=== PATIENT | female | born 1985 | race Caucasian/White ===

== ENCOUNTER → 2018-02-18 08:49 | Outpatient (CLI) | payer OTHER, SELFPAY ==
[2018-02-18 09:41] LABS: Kit/Specimen SENT
== END ==
PROVIDERS: PCP Family Medicine; Visit Provider Advanced Practice Midwife
DX: Z34.81 Encounter for supervision of other normal pregnancy, first trimester (principal); Z36.89 Encounter for other specified antenatal screening
CPT/HCPCS: 36415

== ENCOUNTER → 2018-03-01 00:27 | Outpatient (CLI) | payer OTHER, SELFPAY ==
--- NOTE | 2018-03-01 09:50 | DI.REPORT_ITS ---
SYMPTOM/DIAGNOSIS: TWIN GESTATIN WITH 1 DEMISE, Z34.91, 030.091 OB ULTRASOUND: Comparison is made with 08 February 2018. There is a single gestational sac within the endometrial cavity. A small peripheral echogenic focus is seen which could represent remnants of the previously noted twin gestation. The biometric measurements of the living fetus measures 12 weeks 6 days. cardiac activity is demonstrated at 152 beats/minute. IMPRESSION: Viable single intrauterine gestation of 12 weeks 6 days. A small echogenic focus is seen which could represent remnants of a previously noted nonviable fetus. Many abnormalities cannot be diagnosed. A normal exam does not exclude a congenital anomaly. Radiology No. [id number] LMP: Exam Date:03/01/18 [facility] wks days on EDC ([facility]) 09/10/18 Confirmed: HISTORY: TWIN GESTATIN WITH 1 DEMISE ---- PREDICTED GESTATIONAL AGE NUMBER 12 +3 weeks with a range of 11 +3 week to 13 +3 weeks. 1 Determined by_XX__1STUS___LMP___HISTORY Info. pertaining to fetus # PLACENTA PRESENTATION Grade 0 Cephalic___ Anterior___Posterior___ Breech____ Right Left Transverse(head right___ Fundal___Low-lying___Previa___ Transverse(head left___ Varying___X___ BIOMETRY AMNIOTIC FLUID BPD: mm weeks Normal HC: mm weeks AC: mm weeks FL: mm weeks AMNIOTIC FLUID INDEX >26 WK CRL: 66 mm 12 +6 weeks Cisterna Magna: mm CI: RUQ: LUQ Cerebellum: cm EFW: grams 70% Percentile RLQ: LLQ Total: cms Composite AGE= 12 +6 wks EDC by US__09/07/18 BIOPHYSICAL PROFILE ANATOMY IDENTIFIED SCORE 0/2 Heart: 4-Chamber___Rate:BPM__152 BPM___ LVOT: RVOT: Amniotic Fluid(>2cms)____ Stomach: Kidneys: Respirations (>30 secs) Bladder: Post. Fossa: Body Flex/Extension 3 vessel cord: Ventricles: cord insertion: Lips:____ Extremity Flex/Extension spinal morphology: Nose: Total Score= Palate: NS=not seen
== END ==
PROVIDERS: PCP Family Medicine; Visit Provider Obstetrics & Gynecology
DX: O30.091 Twin pregnancy, unable to determine number of placenta and number of amniotic sacs, first trimester (principal); Z34.81 Encounter for supervision of other normal pregnancy, first trimester
CPT/HCPCS: 76801

== ENCOUNTER 2018-04-13 00:34 | Outpatient (CLI) | payer OTHER, SELFPAY ==
--- NOTE | 2018-04-13 14:49 | DI.US_ITS ---
SYMPTOM/DIAGNOSIS: CARE [address] [place] [address] Z34.82 Many abnormalities cannot be diagnosed. A normal exam does not exclude a congenital anomaly. Radiology No. [id number] LMP: Exam Date: 04/13/18 [facility] 12 wks 6 days on EDC ([facility]) 09/10/18 Confirmed: HISTORY: EDC, SURVEY ---- PREDICTED GESTATIONAL AGE NUMBER 19 weeks with a range of 18 week to 20 weeks. 1 Determined by_XX__1STUS___LMP___HISTORY Info. pertaining to fetus # PLACENTA PRESENTATION Grade 0-1 Cephalic___ Anterior_X__Posterior__X_ Breech____ Right Left__X Transverse(head right___ Fundal_X__Low-lying___Previa___ Transverse(head left___ Varying___X___ BIOMETRY AMNIOTIC FLUID BPD: 44 mm 19 +1 weeks Normal HC: 167 mm 19 +2 weeks AC: 139 mm 19 +2 weeks FL: 29 mm 18 +6 weeks AMNIOTIC FLUID INDEX >26 WK CRL: mm weeks Cisterna Magna: 5 mm CI: 0,79 RUQ: LUQ Cerebellum: 1.9 cm EFW: 276 grams Percentile RLQ: LLQ Total: cms Composite AGE= 10 +1 wks EDC by US__09/06/18 BIOPHYSICAL PROFILE ANATOMY IDENTIFIED SCORE 0/2 Heart: 4-Chamber_X__Rate:BPM__165___ LVOT:____X RVOT:___X Amniotic Fluid(>2cms)____ Stomach:__X Kidneys:__X Respirations (>30 secs) Bladder:___X Post. Fossa:___X Body Flex/Extension 3 vessel cord:__X Ventricles:___X cord insertion:__X___ Lips:__X__ Extremity Flex/Extension spinal morphology:__X Nose:X Total Score= Palate:___X____ NS=not seen
== END 2018-04-13 00:54 ==
PROVIDERS: PCP Family Medicine; Visit Provider Advanced Practice Midwife
DX: Z34.82 Encounter for supervision of other normal pregnancy, second trimester (principal)
CPT/HCPCS: 76805

== ENCOUNTER 2018-04-19 15:13 | Outpatient (CLI) | payer OTHER, SELFPAY ==
[2018-04-21 12:57] LABS: AFP 55.5 ng/mL; Calculated age at EDD 34 years; Cigarette smoking status non-smoker; GA used in risk estimate Scan estimate; IVF Pregnancy No; Initial or repeat testing Initial testing; Insulin dependent diabetes No; Maternal Weight 185 lbs; Number of Fetuses 1; Prev Pregnancy w/NTD No; RECOMMENDED FOLLOW UP None.; Results Summary Normal risk
== END 2018-04-19 15:33 ==
PROVIDERS: PCP Family Medicine; Visit Provider Advanced Practice Midwife
DX: Z34.92 Encounter for supervision of normal pregnancy, unspecified, second trimester (principal); Z36.89 Encounter for other specified antenatal screening
CPT/HCPCS: 36415; 82105

== ENCOUNTER 2018-06-20 08:11 | Outpatient (CLI) | payer OTHER, SELFPAY ==
[2018-06-20 08:31] LABS: HCT 34.5 % (36.0-46.0); HGB 11.5 g/dL (12.0-15.5); Mean Corp. HGB Concentration 33.3 g/dL (32.0-36.0); Mean Corpuscular Hemoglobin 30.9 pg (27.0-33.0); Mean Corpuscular Volume 92.7 fL (80-95); Mean Platelet Volume 10.2 fL (8.0-11.0); Platelet Count 171 x1000/uL (130-400); RBC 3.72 m/cumm (4.00-5.20); RBC Distribution Width 13.5 % (11.7-14.6); White Blood Cell Count 5.95 k/cumm (4.4-10.8)
[2018-06-20 08:39] LABS: Glucose,1 Hr (Glucola) 77 mg/dL (80-140)
== END 2018-06-20 08:31 ==
PROVIDERS: PCP Family Medicine; Visit Provider Advanced Practice Midwife
DX: Z34.93 Encounter for supervision of normal pregnancy, unspecified, third trimester (principal); Z36.2 Encounter for other antenatal screening follow-up
CPT/HCPCS: 36415; 82950; 85027; 86850; 90384

== ENCOUNTER 2018-06-22 00:56 | Outpatient (CLI) | payer OTHER, SELFPAY ==
--- NOTE | 2018-06-22 15:35 | DI.US_ITS ---
SYMPTOM/DIAGNOSIS: INNER ASPECT RT CALF, R/O DVT Z34.90 RIGHT LOWER EXTREMITY ULTRASOUND: There is an area of the bruising and pain in the calf region. There are dilated tortuous superficial veins without thrombus. The deep venous system also appears free of thrombus. No Cabral's cyst or hematoma seen. IMPRESSION: Tortuous superficial veins in the calf. No evidence of superficial or deep venous thrombosis.
--- NOTE | 2018-06-22 16:57 | DI.VRAD_ITS ---
EXAM: US Right Duplex Lower Extremity Veins, Limited EXAM DATE/TIME: 06/22/2018 4:35 PM CLINICAL HISTORY: 32 years old, female; Signs and symptoms; Varicose veins of lower extremities; With pain; Patient HX: Inner aspect of RT calf pain and swelling in area of varicose vein. Rule out dvt. TECHNIQUE: Real-time Duplex ultrasound of the Right Lower Extremity with 2-D mejia scale, color Doppler flow and spectral waveform analysis. Limited exam was focused on the right lower extremity veins. COMPARISON: No relevant prior studies available. FINDINGS: Right deep veins: Unremarkable. The common femoral, femoral and popliteal veins are patent without thrombus. Normal compressibility, augmentation response and Doppler waveforms. Right superficial veins: Unremarkable. Saphenofemoral junction is patent without thrombus. Soft tissues: Unremarkable. IMPRESSION: No acute findings. No evidence of deep vein thrombosis. Dictated and Authenticated by: Emil Hoover MD. Ordering:JUD LO MD
== END 2018-06-22 01:16 ==
PROVIDERS: PCP Family Medicine; Visit Provider Advanced Practice Midwife
DX: M79.604 Pain in right leg (principal); I83.811 Varicose veins of right lower extremity with pain
CPT/HCPCS: 93971

== ENCOUNTER 2018-08-15 10:23 | Outpatient (CLI) | payer OTHER, SELFPAY | END 2018-08-15 10:43 | PROVIDERS: PCP Family Medicine; Visit Provider Advanced Practice Midwife | DX: O36.8130 Decreased fetal movements, third trimester, not applicable or unspecified (principal); Z3A.36 36 weeks gestation of pregnancy | CPT/HCPCS: 59025 ==

== ENCOUNTER 2018-08-15 11:43 | Outpatient (CLI) | payer OTHER, SELFPAY ==
--- NOTE | 2018-08-15 12:12 | DI.US_ITS ---
SYMPTOM/DIAGNOSIS: EVALUATE EFW AND YANNICK PRIOR TO ATTEMPT AT ECV LIMITED OB ULTRASOUND: The amniotic fluid index is 16.5, in the normal range. The biometric measurements correspond to 36 weeks 5 days which is within the expected range. The placenta is anterior. Estimated weight is 3083 grams, consistent with 70% percentile. No abnormalities are identified. IMPRESSION: weight and YANNICK are within normal limits. Many abnormalities cannot be diagnosed. A normal exam does not exclude a congenital anomaly. Radiology No. [id number] LMP: Exam Date:08/15/2018 [facility] wks days on EDC ([facility]) 09/10/18 Confirmed: HISTORY: EVALUATE EFW AND YANNICK PREDICTED GESTATIONAL AGE NUMBER 36 +2 weeks with a range of 35 +2 week to 37 +2 weeks. 1 Determined by_XX__1STUS___LMP___HISTORY Info. pertaining to fetus # PLACENTA PRESENTATION Grade II Cephalic___ Anterior_XX__Posterior___ Breech__XX__ Right Left__XX Transverse(head right___ Fundal___Low-lying___Previa___ Transverse(head left___ Varying BIOMETRY AMNIOTIC FLUID BPD: 90 mm 36 +3 weeks Normal HC: 325 mm 36 +5 weeks AC: 336 mm 37 +4 weeks FL: 70 mm 36 +1 weeks AMNIOTIC FLUID INDEX >26 WK CRL: mm weeks Cisterna Magna: mm CI: 81 RUQ:_7.5 LUQ___2.3 Cerebellum: cm EFW: 3083 grams 72% Percentile RLQ:__6.6____LLQ__0 Total:__16.5__cms Composite AGE= 36 +5 wks EDC by US___/ BIOPHYSICAL PROFILE ANATOMY IDENTIFIED SCORE 0/2 Heart: 4-Chamber__XX_Rate:BPM__135 BPM___ LVOT: RVOT: Amniotic Fluid(>2cms)____ Stomach:____XX___ Kidneys: Respirations (>30 secs) Bladder:___XX Post. Fossa: Body Flex/Extension 3 vessel cord: Ventricles: cord insertion: Lips:__XX__ Extremity Flex/Extension spinal morphology: Nose: XX Total Score= Palate: NS=not seen
== END 2018-08-15 12:03 ==
PROVIDERS: PCP Family Medicine; Visit Provider Obstetrics & Gynecology
DX: O32.1XX0 Maternal care for breech presentation, not applicable or unspecified (principal); Z34.93 Encounter for supervision of normal pregnancy, unspecified, third trimester
CPT/HCPCS: 76816

== ENCOUNTER 2018-08-15 14:03 | Outpatient (REF) | payer OTHER, SELFPAY | END 2018-08-15 14:23 | LOC: LBN 14:03 | PROVIDERS: PCP Family Medicine; Visit Provider Advanced Practice Midwife | DX: Z34.93 Encounter for supervision of normal pregnancy, unspecified, third trimester (principal); Z36.85 Encounter for antenatal screening for Streptococcus B | CPT/HCPCS: 87081 ==

== ENCOUNTER 2018-08-16 07:16 | Observation (INO) | payer OTHER, SELFPAY ==
[2018-08-16 08:13] LABS: HCT 34.3 % (36.0-46.0); HGB 11.4 g/dL (12.0-15.5); Mean Corp. HGB Concentration 33.2 g/dL (32.0-36.0); Mean Corpuscular Hemoglobin 30.1 pg (27.0-33.0); Mean Corpuscular Volume 90.5 fL (80-95); Mean Platelet Volume 11.1 fL (8.0-11.0); Platelet Count 158 x1000/uL (130-400); RBC 3.79 m/cumm (4.00-5.20); RBC Distribution Width 14.3 % (11.7-14.6); White Blood Cell Count 6.49 k/cumm (4.4-10.8)
[2018-08-16] MEDS: Lactated Ringers 1,000 ML 125 ML IV (08:38)
[2018-08-16] MEDS: Terbutaline 1 MG/ML VIAL 0.25 MG SC (08:38)
--- NOTE | 2018-08-17 15:04 | W.PM.OP ---
Date of service: 08/16/18 Operative Note DATE OF PROCEDURE: 08/16/18 PRE-OP DIAGNOSIS: 36 weeks. Breech presentaiton POST-OP DIAGNOSIS: same PROCEDURE: External cephalic version SURGEON: Shahid Chou ANESTHESIA: other (Nitrous) ESTIMATED BLOOD LOSS: 0 PATHOLOGY: none sent COMPLICATIONS: None Procedure Description: The patient was counseled on risks related to ECV including distress, placenta abruption, rupture of membranes and labor. All questions were answered and consent was obtained preprocedure. A reactive non-stress test was obtained prior the procedure. A bedside ultrasound confirmed petrona breech presentation. The patient was medicated with 0.25 mg of SQ terbutaline. Attempts at rotation were made. The fetus was in back up presentation. After several attempts the fetus was unable to be turned and the procedure was abandoned. Continuous monitoring was peformed for [facility] 2 hours post procedure which showed a reactive tracing.
--- NOTE | 2018-08-17 15:07 | ROE_ITS ---
Date of service: 08/16/18 Operative Note DATE OF PROCEDURE: 08/16/18 PRE-OP DIAGNOSIS: 36 weeks. Breech presentaiton POST-OP DIAGNOSIS: same PROCEDURE: External cephalic version SURGEON: Shahid Chou ANESTHESIA: other (Nitrous) ESTIMATED BLOOD LOSS: 0 PATHOLOGY: none sent COMPLICATIONS: None Procedure Description: The patient was counseled on risks related to ECV including distress, placenta abruption, rupture of membranes and labor. All questions were answered and consent was obtained preprocedure. A reactive non-stress test was obtained prior the procedure. A bedside ultrasound confirmed petrona breech presentation. The patient was medicated with 0.25 mg of SQ terbutaline. Attempts at rotation were made. The fetus was in back up presentation. After several attempts the fetus was unable to be turned and the procedure was abandoned. Continuous monitoring was peformed for [facility] 2 hours post procedure which showed a reactive tracing.
== END 2018-08-16 11:20 | disposition home or self-care (01) ==
PROVIDERS: Admitting Provider Obstetrics & Gynecology; PCP Family Medicine; Visit Provider Obstetrics & Gynecology
DX: O32.1XX0 Maternal care for breech presentation, not applicable or unspecified (principal); Z3A.36 36 weeks gestation of pregnancy; Z29.13 Encounter for prophylactic Rho(D) immune globulin; Y66 Nonadministration of surgical and medical care
CPT/HCPCS: 59412; 36415; 76815; 85027; 86850; 86900; 86901; 90384; 96372; 59025; 86870; G0378; J2790

== ENCOUNTER 2018-08-20 07:16 | Outpatient (CLI) | payer OTHER, SELFPAY ==
[2018-08-20 09:04] LABS: Abs Immature Grans 0.03 k/cumm (0.0-0.09); Absolute Basophil Count 0.01 k/cumm (0.0-0.2); Absolute Eosinophil Count 0.12 k/cumm (0.0-0.7); Absolute Lymphocyte Count 1.24 k/cumm (1.2-3.4); Absolute Monocyte Count 0.54 k/cumm (0.11-0.7); Absolute Neutrophil Count 5.26 k/cumm (1.2-6.7); Basophils % 0.1; Eosinophils % 1.7; HCT 35.5 % (36.0-46.0); HGB 11.9 g/dL (12.0-15.5); Immature Grans % 0.4; Lymphocytes % 17.2; Mean Corp. HGB Concentration 33.5 g/dL (32.0-36.0); Mean Corpuscular Hemoglobin 30.7 pg (27.0-33.0); Mean Corpuscular Volume 91.5 fL (80-95); Mean Platelet Volume 11.5 fL (8.0-11.0); Monocytes % 7.5; Neutrophils % 73.1; Platelet Count 169 x1000/uL (130-400); RBC 3.88 m/cumm (4.00-5.20); RBC Distribution Width 14.5 % (11.7-14.6)
[2018-08-20 09:07] LABS: Anion Gap 7.9 mmol/L (3-11); BUN 11 mg/dL (7-18); CO2 25.1 mmol/L (21.0-32.0); CREATININE 0.61 mg/dL (0.55-1.02); Calcium 8.7 mg/dL (8.5-10.1); Chloride 103 mmol/L (98-107); Glucose 79 mg/dL (70-100); Potassium 3.9 mmol/L (3.5-5.1); Sodium 136 mmol/L (136-145)
== END 2018-08-20 08:59 | disposition home or self-care (01) ==
PROVIDERS: PCP Family Medicine; Visit Provider Advanced Practice Midwife
DX: O26.893 Other specified pregnancy related conditions, third trimester (principal); R42 Dizziness and giddiness; Z3A.37 37 weeks gestation of pregnancy
CPT/HCPCS: 36415; 80048; 59025; 81003; 85025

== ENCOUNTER 2018-09-01 08:20 | Emergency (ER) | payer OTHER, SELFPAY ==
[2018-09-01 08:26] VITALS: BP 126/87; PULSE 89; RESP 16; TEMP 36.8; O2SAT 97
[2018-09-01] MEDS: Meclizine 25 MG TAB PO (08:35)
[2018-09-01 08:39] VITALS: RESP 16
--- NOTE | 2018-09-01 08:39 | ED.GENADUL_ITS ---
Discharge Plan Disposition Patient Disposition: HOME Condition: Good Discharge Details Chief Complaint: Dizzy/Sync Clinical Impression: Dizziness Primary Care Provider: Josue Us ED Provider: Donald Elam Home Meds and New Rx's Prescriptions: New meclizine 25 mg tablet 25 mg PO BID PRN (Reason: dizziness) Qty: 20 RF: 0 No Action razia.stocking,thigh,reg,med misc .ROUTE .MEDSUPPLY Qty: 2 RF: 0 pantoprazole [Protonix] 20 mg tablet,delayed release (DR/EC) 20 mg PO DAILY MDD 20 MG Qty: 90 RF: 0 breast pump device .ROUTE .MEDSUPPLY Qty: 1 RF: 0 Daily Multiple 1 EACH tablet 1 ea PO DAILY RF: 0 oseltamivir 75 mg capsule 75 mg PO DAILY Qty: 10 RF: 0 ferrous sulfate [Iron (ferrous sulfate)] 325 mg (65 mg iron) Tablet 325 mg PO DAILY RF: 0 Discharge Instructions Instructions: Dizziness (ED) Additional Instructions: Please take medication as directed. Please drink 10-12 cups of water fluid per day. If you notice any worsening of your symptoms, or any new symptoms such as severe headache, worsening dizziness, vomiting, diarrhea, fever, chills, shortness of breath, chest pain, numbness, weakness, or fainting , please return immediately to the emergency department for reevaluation. Please follow up with your primary care provider as soon as possible for reassessment and reevaluation. As always, it was a pleasure participating in your medical care today. Referrals: Josue Us [Primary Care Provider] - Medical Decision Making This is a 32-year-old female who is currently 39 weeks scheduled to have a in 2 days who presents today for evaluation of dizziness for the last 2 days, made worse with movement, and with associated mild tinnitus. Physical exam demonstrates horizontal nystagmus, but no red flags of vertical nystagmus, rotatory nystagmus, positive test of skew, ataxia, and in no red flags of headache, neurologic deficit, neurologic abnormality, or other concerning event. Signs and symptoms are clinically consistent with peripheral vertigo, and inconsistent with venous sinus thrombosis, cerebellar stroke, eclampsia, or preeclampsia, or other significant abnormality. No evidence of otitis media or significant effusion. With signs and symptoms consistent with peripheral vertigo I feel that the patient would benefit from meclizine, oral fluids, and close follow-up. We discussed red flags which to return the patient understands. I have extensively reviewed the treatment plan and discharge instructions with the patient. I have addressed all patient concerns at this time. The patient was made aware of what symptoms to monitor for that would warrant a return to the emergency department. Discussed the plan with the patient, they demonstrate verbal understanding and agreement with our assessment and plan at this time. HPI General Date/Time Provider Initiated Documentation: 09/01/18 08:21 . HPI Narrative: This is a 32-year-old female who is currently 39 weeks scheduled to have a in 2 days, who presents today for 2 days of dizziness. She has no associated headache, neck stiffness, fever, chills, nausea, vomiting or diarrhea. The dizziness is worse with movement, and is associated with mild tinnitus. She denies any other associated symptoms. She has not had symptoms like this before. She denies any recent trauma. Of note the patient is on Tamiflu currently prophylactically as her son came down with the flu. She denies any new medications otherwise. She is taking a vitamin. She has no other complaints or modifying factors at this time. Related Data Home Medications Medication Instructions Recorded Confirmed Daily Multiple 1 ea PO DAILY 09/26/14 09/01/18 compression stocking,thigh #2 each 07/04/18 08/23/18 high,regular length,medium circumference breast pump #1 each 07/20/18 08/23/18 pantoprazole [Protonix] 20 mg PO DAILY #90 tab-cap MDD 20 07/20/18 09/01/18 MG ferrous sulfate [Iron (ferrous 325 mg PO DAILY 08/16/18 09/01/18 sulfate)] oseltamivir 75 mg capsule 75 mg PO DAILY #10 cap 08/26/18 09/01/18 meclizine 25 mg PO BID PRN #20 tab 09/01/18 Previous Rx's Medication Instructions Recorded compression stocking,thigh #2 each 07/04/18 high,regular length,medium circumference breast pump #1 each 07/20/18 pantoprazole [Protonix] 20 mg PO DAILY #90 tab-cap MDD 20 07/20/18 MG oseltamivir 75 mg capsule 75 mg PO DAILY #10 cap 08/26/18 meclizine 25 mg PO BID PRN #20 tab 09/01/18 Allergies Allergy/AdvReac Type Severity Reaction Status Date / Time CATS/HAY Allergy Unknown ITCHY Uncoded 09/01/18 08:36 EYES, HARD TO BTREATHE, SWELLING OF FACE Review of Systems Review of Systems All systems reviewed & are unremarkable except as noted in HPI and below PFSH Social History adopted: No foster care: No household members: spouse and children number of children: 1 pets and animals: Yes (1 dog) what type of physical activity do you participate in: walking frequency: 5-6 times per week duration: 30-45 minutes/day Smoking and Tabacco status: Never alcohol intake: former details: none in otherwise occasional drink What is your relationship status?: Panel score (0-1 are the most socially isolated patients): 1 Seatbelt use: always History History 5 Para 1 Hx # Term Pregnancies 1 Multiple births 0 Hx # Pregnancies 0 Ectopic pregnancies 0 AB induced 1 Hx Number of Living Children 1 AB spontaneous 2 Exam Narrative Exam Narrative: 1.Const: Well-nourished, Well-developed, appearing stated age 2.Eyes: PERRL, no conjunctival injection, and symmetrical lids. 3.ENT: Atraumatic external nose and ears. Moist MM. Neck: Symmetric, trachea midline, No thyromegaly. Patient demonstrates good movement of cervical neck. There is no nuchal rigidity, no nuchal tenderness. Patient is able to flex the neck without any difficulty or significant pain. Negative Kernig's and Brudzinski sign. 4.CVS: +S1/S2, No murmurs or gallops. Peripheral pulses 2+ and equal in all extremities. Brisk capillary refill in all extremities. 5.RESP: Unlabored respiratory effort. Clear to auscultation bilaterally. No wheezes rales or rhonchi 6.GI: Soft, Nontender/Nondistended, No hepatosplenomegaly. No guarding or rebound. 7.MSK: Normocephalic/Atraumatic, Extremities w/o deformity or ttp No cyanosis or clubbing, Normal movement of all extremities 8.Skin: Warm, Dry. No rashes or lesions. 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 Sensation grossly intact, no focal neurologic deficits. All 6 cardinal planes of vision are fully intact. No evidence of rotatory or vertical nystagmus. The patient demonstrated a normal lifhef-rwkx-gvkbeo, good dexterity. There was no evidence of dysdiadochokinesia. Patient was able to ambulate without difficulty. There was no wide-based gait. Romberg, and kohp-da-lpjh are both normal on testing. Sensation was intact bilaterally as well as muscle strength bilaterally for all extremities. Patient was able to verbalize butter cup with no slurring, or miss pronunciation. Cerebellar function testing is normal. The patient demonstrates a normal hints exam with no findings concerning for a central event. No vertical nystagmus. The patient does have notable horizontal nystagmus, worse with head impulse test, specifically to the left. The head impulse test is negative for any significant central abnormality. Normal test of skew. No suggestion of a central cerebellar event. 10.Psych: (AAO) x3. Appropriate mood and affect
== END 2018-09-01 08:42 | disposition home or self-care (01) ==
PROVIDERS: Emergency Provider Student in an Organized Health Care Education/Training Program; PCP Family Medicine
DX: O99.89 Other specified diseases and conditions complicating pregnancy, childbirth and the puerperium (principal); R42 Dizziness and giddiness; Z3A.39 39 weeks gestation of pregnancy
CPT/HCPCS: 99283

== ENCOUNTER 2018-09-05 07:53 | Inpatient (IN) | payer OTHER, SELFPAY ==
[2018-09-05 10:15] LABS: HGB 12.3 g/dL (12.0-15.5); Mean Corp. HGB Concentration 33.2 g/dL (32.0-36.0); Mean Corpuscular Hemoglobin 30.6 pg (27.0-33.0); Mean Platelet Volume 11.9 fL (8.0-11.0); Platelet Count 152 x1000/uL (130-400); RBC 4.02 m/cumm (4.00-5.20); RBC Distribution Width 15.3 % (11.7-14.6); White Blood Cell Count 8.63 k/cumm (4.4-10.8)
[2018-09-05 19:50] LABS: HCT 37.4 % (36.0-46.0); HGB 12.7 g/dL (12.0-15.5); Mean Corpuscular Volume 91.2 fL (80-95); Mean Platelet Volume 12.1 fL (8.0-11.0); Platelet Count 166 x1000/uL (130-400); RBC Distribution Width 15.4 % (11.7-14.6)
[2018-09-05 20:08] LABS: Anion Gap 8.5 mmol/L (3-11); BUN 10 mg/dL (7-18); CO2 24.5 mmol/L (21.0-32.0); CREATININE 0.57 mg/dL (0.55-1.02); Chloride 103 mmol/L (98-107); Glucose 90 mg/dL (70-100); Potassium 3.9 mmol/L (3.5-5.1); Sodium 136 mmol/L (136-145)
[2018-09-05 20:13] LABS: ALT 12 U/L (12-78); AST 16 U/L (15-37); Albumin 2.5 g/dL (3.4-5.0); Alkaline Phosphatase 149 U/L (46-116); Bilirubin, Direct 0.07 mg/dL (0.00-0.20); Bilirubin, Total 0.2 mg/dL (0.2-1.0)
[2018-09-05] MEDS: Acetaminophen 325 MG TAB 650 MG PO (22:16)
[2018-09-05] MEDS: Ibuprofen 600 MG TAB PO (22:16)
[2018-09-05] MEDS: Meclizine 25 MG TAB PO (22:17)
[2018-09-05] MEDS: Hamamelis Leaf/Glycerin 100 EACH BOX PR (22:18)
[2018-09-06] MEDS: Ibuprofen 600 MG TAB PO ×3 (03:12→15:57)
[2018-09-06] MEDS: Acetaminophen 325 MG TAB 650 MG PO ×3 (03:13→15:57)
[2018-09-06] MEDS: Meclizine 25 MG TAB PO (06:38)
[2018-09-06] MEDS: Pantoprazole 20 MG TABCR PO (06:38)
[2018-09-06 07:56] LABS: HCT 37.9 % (36.0-46.0); HGB 12.7 g/dL (12.0-15.5); Mean Corp. HGB Concentration 33.5 g/dL (32.0-36.0); Mean Corpuscular Hemoglobin 30.6 pg (27.0-33.0); Mean Corpuscular Volume 91.3 fL (80-95); Mean Platelet Volume 11.5 fL (8.0-11.0); Platelet Count 176 x1000/uL (130-400); RBC 4.15 m/cumm (4.00-5.20); RBC Distribution Width 15.5 % (11.7-14.6); White Blood Cell Count 13.05 k/cumm (4.4-10.8)
[2018-09-06 20:03] LABS: ALT 17 U/L (12-78); AST 29 U/L (15-37); Albumin 2.1 g/dL (3.4-5.0); Alkaline Phosphatase 119 U/L (46-116); Bilirubin, Direct 0.06 mg/dL (0.00-0.20); Bilirubin, Total 0.2 mg/dL (0.2-1.0); Total Protein 6.2 g/dL (6.4-8.2); Uric Acid 3.5 mg/dL (2.6-6.0)
[2018-09-07] MEDS: Ibuprofen 600 MG TAB PO ×2 (03:20→11:34)
[2018-09-07] MEDS: Acetaminophen 325 MG TAB 650 MG PO ×2 (03:20→11:34)
[2018-09-07] MEDS: Meclizine 25 MG TAB PO (05:56)
== END 2018-09-07 14:30 | disposition home or self-care (01) | DRG 807 ==
PROVIDERS: Admitting Provider Advanced Practice Midwife; PCP Family Medicine; Visit Provider Advanced Practice Midwife
DX: O32.0XX0 Maternal care for unstable lie, not applicable or unspecified (principal); Z37.0 Single live birth; Z3A.39 39 weeks gestation of pregnancy; O70.0 First degree perineal laceration during delivery; O76 Abnormality in fetal heart rate and rhythm complicating labor and delivery; O32.6XX0 Maternal care for compound presentation, not applicable or unspecified; O87.4 Varicose veins of lower extremity in the puerperium; O99.02 Anemia complicating childbirth; D64.9 Anemia, unspecified; O92.29 Other disorders of breast associated with pregnancy and the puerperium
CPT/HCPCS: 36415; 80048; 80076; 85027; 86850; 86900; 86901; 59200; 84550; 86870; J3490

== ENCOUNTER 2018-09-12 14:21 | Outpatient (CLI) | payer OTHER, SELFPAY ==
[2018-09-12 15:26] LABS: PROTEIN 57.3 mg/dL
[2018-09-12 15:32] LABS: ALT 25 U/L (12-78); AST 19 U/L (15-37); Albumin 2.8 g/dL (3.4-5.0); Alkaline Phosphatase 111 U/L (46-116); Bilirubin, Direct 0.08 mg/dL (0.00-0.20); Bilirubin, Total 0.2 mg/dL (0.2-1.0); Total Protein 6.7 g/dL (6.4-8.2); Uric Acid 4.3 mg/dL (2.6-6.0)
[2018-09-12 15:35] LABS: Prot/Crea Ur Ratio 0.68
== END 2018-09-12 14:41 ==
PROVIDERS: PCP Family Medicine; Visit Provider Advanced Practice Midwife
DX: R03.0 Elevated blood-pressure reading, without diagnosis of hypertension (principal)
CPT/HCPCS: 36415; 80076; 82565; 84156; 84550

== ENCOUNTER 2018-10-14 16:38 | Outpatient (REF) | payer OTHER, SELFPAY ==
[2018-10-17 14:13] LABS: Chlamydia Result Negative; GC Result Negative; Specimen Description CERVIX
== END 2018-10-14 16:58 ==
LOC: LBN 16:38
PROVIDERS: PCP Family Medicine; Visit Provider Advanced Practice Midwife
DX: Z01.419 Encounter for gynecological examination (general) (routine) without abnormal findings (principal); Z11.3 Encounter for screening for infections with a predominantly sexual mode of transmission
CPT/HCPCS: 87491; 87591

== ENCOUNTER 2020-01-26 07:47 | Outpatient (CLI) | payer OTHER, SELFPAY ==
[2020-01-31 19:03] LABS: SARS-CoV-2 RNA Undetected (Undetected); SARS-CoV-2 Specimen Source Nasopharynx
== END 2020-01-26 08:07 ==
PROVIDERS: PCP Nurse Practitioner; Visit Provider Nurse Practitioner
DX: Z11.59 Encounter for screening for other viral diseases (principal)
CPT/HCPCS: U0003

== ENCOUNTER 2020-03-28 14:12 | Outpatient (REF) | payer OTHER, SELFPAY ==
--- NOTE | 2020-03-28 13:30 | PAPFT_PTH ---
PATIENT: Sissy Patel LOC: [facility] U#:[id number] AGE/SX: 34/F ROOM: RE03/28/[address]: MARAL Moffett : 1985 BED: DIS: 03/28/2020 SPEC #: [id number] RECD: 03/28/20 18:15 STATUS: KAYLIE REFlaco #: [id number] KODI: 03/28/20 13:[address]: Shelli Velasco DEPT: [facility], [facility] Cytology RECD BY: Sanaz Frederick ENTERED: 03/28/20 18:16 SP TYPE: PAPFT ROEL DR: Marge Maldonado, PhD [employer] Tissues: 1 - CX/ENDOCX FOR PAP SMEARS Procedures: PAP THIN PREP/UVM Screening HPV DNA PROBE Comments: [id number]
== END 2020-03-28 14:32 ==
LOC: LBN 14:12
PROVIDERS: PCP Nurse Practitioner; Visit Provider Nurse Practitioner Family
DX: Z12.4 Encounter for screening for malignant neoplasm of cervix (principal); Z11.51 Encounter for screening for human papillomavirus (HPV); Z97.5 Presence of (intrauterine) contraceptive device
CPT/HCPCS: 88142; 87624

== ENCOUNTER 2020-10-17 02:58 | Outpatient (CLI) | payer OTHER, SELFPAY ==
[2020-10-18 14:35] LABS: COVID-19 RT-PCR UVMMC Result Negative (Negative)
== END 2020-10-17 02:59 | disposition home or self-care (01) ==
LOC: LBO 02:58
PROVIDERS: PCP Nurse Practitioner; Visit Provider Nurse Practitioner
DX: Z20.822 Contact with and (suspected) exposure to COVID-19 (principal)
CPT/HCPCS: U0003

== ENCOUNTER 2021-07-29 02:41 | Outpatient (CLI) | payer OTHER, SELFPAY ==
[2021-07-29 16:16] LABS: Anion Gap 6.7 mmol/L (3-11); BUN 15 mg/dL (7-18); CO2 30.3 mmol/L (21.0-32.0); CREATININE 0.8 mg/dL (0.55-1.02); Calcium 9.4 mg/dL (8.5-10.1); Chloride 103 mmol/L (98-107); Glucose 91 mg/dL (74-106); Sodium 140 mmol/L (136-145)
== END 2021-07-29 02:42 | disposition home or self-care (01) ==
LOC: LBO 02:41
PROVIDERS: PCP Nurse Practitioner; Visit Provider Nurse Practitioner
DX: I10 Essential (primary) hypertension (principal)
CPT/HCPCS: 36415; 80048

== ENCOUNTER 2021-11-20 21:12 | Outpatient (REF) | payer OTHER, SELFPAY ==
[2021-11-22 11:19] LABS: COVID-19 RT-PCR UVMMC Result Negative (Negative)
== END 2021-11-20 21:13 | disposition home or self-care (01) ==
LOC: LBN 21:12
PROVIDERS: PCP Nurse Practitioner; Visit Provider Nurse Practitioner Family
DX: Z20.822 Contact with and (suspected) exposure to COVID-19 (principal)
CPT/HCPCS: U0003

== ENCOUNTER 2022-11-18 10:18 | Outpatient (CLI) | payer BC, SELFPAY ==
[2022-11-18 11:38] LABS: HCG Quant, Pregnancy 1938 mIU/mL (1-3)
== END 2022-11-18 10:19 | disposition home or self-care (01) ==
PROVIDERS: PCP Nurse Practitioner Family; Visit Provider Obstetrics & Gynecology
DX: O20.0 Threatened abortion (principal)
CPT/HCPCS: 36415; 86850; 86900; 86901; 84702

== ENCOUNTER 2022-11-20 01:34 | Outpatient (CLI) | payer BC, SELFPAY ==
[2022-11-20 10:16] LABS: HCG Quant, Pregnancy 2078 mIU/mL (1-3)
--- NOTE | 2022-11-20 11:00 | DI.US_ITS ---
Exam(s) US OB 1ST TRIMESTER EXAM: US OB 1ST TRIMESTER CLINICAL HISTORY: Plateaued quant, 2000, O36.80X0, possible ectopic, WET READING. TECHNIQUE: First trimester obstetrical ultrasound was performed. COMPARISON: No exams were available for comparison FINDINGS: There is no evidence of intrauterine gestational sac. Endometrial thickness is 7 mm. There is no fl uid in the endometrial cavity. Maternal ovaries: In addition to sub cm follicles in both ovaries there also findings in both ovaries which have the ap pearance of corpus luteal cysts. Interposed between the uterus and right ovary is an abnormal structure measuring approximately 2.6 x 2.1 X 2.2 cm, suspicious for ectopic . Small amount of fluid is noted in this region. IMPRESSION:: No evidence of intrauterine gestation. Right adnexal finding suspicious for possible ectopic , this measuring approximately 2.6 x 2 .1 by 2.2 cm. There is a small amount of fluid around this region the right adnexa. Report called by myself to the physician at [facility]. DATA REPOSITORY:
[2022-11-20 13:25] LABS: Abs Immature Grans 0.03 10^3/uL (0.0-0.06); Absolute Basophil Count 0.01 10^3/uL (0.0-0.2); Absolute Eosinophil Count 0.13 10^3/uL (0.0-0.7); Absolute Lymphocyte Count 1.69 10^3/uL (1.2-3.4); Absolute Monocyte Count 0.57 10^3/uL (0.1-0.8); Absolute Neutrophil Count 3.71 10^3/uL (1.2-6.7); Basophils % 0.2; Eosinophils % 2.1; HCT 36.6 % (36.0-46.0); HGB 12.3 g/dL (11.2-15.7); Immature Grans % 0.5; Lymphocytes % 27.5; MCH 32.4 pg (27.0-33.0); MCHC 33.6 % (32.0-36.0); MCV 96 fL (80-95); MPV 10.2 fL (8.0-11.0); Monocytes % 9.3; Neutrophils % 60.4; Platelet Count 215 10^3/uL (130-400); RDW 13.2 % (11.7-14.6); RDW-SD 47.5 fL; WBC 6.14 10^3/uL (4.4-10.8)
[2022-11-20 13:49] LABS: ALT 19 U/L (14-59); AST 16 U/L (15-37); Albumin 3.8 g/dL (3.4-5.0); Alkaline Phosphatase 55 U/L (46-116); Anion Gap 7.5 mmol/L (3-11); BUN 12 mg/dL (7-18); Bilirubin, Total 0.4 mg/dL (0.2-1.0); CO2 25.5 mmol/L (21.0-32.0); CREATININE 0.7 mg/dL (0.55-1.02); Calcium 9.2 mg/dL (8.5-10.1); Chloride 103 mmol/L (98-107); Estimated GFR 113.46 (mL/min/1.73m2); Glucose 86 mg/dL (74-106); Potassium 3.7 mmol/L (3.5-5.1); Sodium 136 mmol/L (136-145); Total Protein 7.3 g/dL (6.4-8.2)
== END 2022-11-20 01:35 | disposition home or self-care (01) ==
PROVIDERS: PCP Nurse Practitioner Family; Visit Provider Obstetrics & Gynecology
DX: O20.0 Threatened abortion (principal); O36.80X0 Pregnancy with inconclusive fetal viability, not applicable or unspecified; O00.90 Unspecified ectopic pregnancy without intrauterine pregnancy; O26.899 Other specified pregnancy related conditions, unspecified trimester; Z67.91 Unspecified blood type, Rh negative
CPT/HCPCS: 36415; 80053; 86850; 90384; 76801; 84702; 85025

== ENCOUNTER 2022-11-23 03:16 | Outpatient (CLI) | payer BC, SELFPAY ==
[2022-11-23 18:01] LABS: HCG Quant, Pregnancy 1930 mIU/mL (1-3)
== END 2022-11-23 03:17 | disposition home or self-care (01) ==
LOC: LBO 03:16
PROVIDERS: PCP Nurse Practitioner Family; Visit Provider Obstetrics & Gynecology
DX: O00.90 Unspecified ectopic pregnancy without intrauterine pregnancy (principal)
CPT/HCPCS: 36415; 84702

== ENCOUNTER 2022-11-26 02:42 | Outpatient (CLI) | payer BC, SELFPAY ==
[2022-11-26 11:27] LABS: HCG Quant, Pregnancy 1576 mIU/mL (1-3)
== END 2022-11-26 02:43 | disposition home or self-care (01) ==
LOC: LBO 02:42
PROVIDERS: PCP Nurse Practitioner Family; Visit Provider Obstetrics & Gynecology
DX: O00.80 Other ectopic pregnancy without intrauterine pregnancy
CPT/HCPCS: 36415; 84702

== ENCOUNTER 2022-12-07 02:28 | Outpatient (CLI) | payer BC, SELFPAY ==
[2022-12-07 16:31] LABS: HCT 37.4 % (36.0-46.0); HGB 12.3 g/dL (11.2-15.7); MCH 31.9 pg (27.0-33.0); MCHC 32.9 % (32.0-36.0); MCV 97 fL (80-95); Platelet Count 221 10^3/uL (130-400); RBC 3.85 10^6/uL (3.93-5.22); WBC 5.32 10^3/uL (4.4-10.8)
[2022-12-07 17:36] LABS: HCG Quant, Pregnancy 163 mIU/mL (1-3)
[2022-12-07 18:13] LABS: Calculated LDL 103 mg/dL (<100); Cholesterol 227 mg/dL (<200); HDL Cholesterol 108 mg/dL (40-60); Triglyceride 82 mg/dL (<150)
== END 2022-12-07 02:29 | disposition home or self-care (01) ==
LOC: LBO 02:28
PROVIDERS: PCP Nurse Practitioner Family; Visit Provider Obstetrics & Gynecology
DX: O00.90 Unspecified ectopic pregnancy without intrauterine pregnancy (principal)
CPT/HCPCS: 36415; 80061; 85027; 84702

== ENCOUNTER 2022-12-15 04:17 | Outpatient (CLI) | payer BC, SELFPAY ==
[2022-12-15 16:37] LABS: HCG Quant, Pregnancy 22 mIU/mL (1-3)
== END 2022-12-15 04:18 | disposition home or self-care (01) ==
LOC: LBO 04:17
PROVIDERS: PCP Nurse Practitioner Family; Visit Provider Obstetrics & Gynecology
DX: O00.90 Unspecified ectopic pregnancy without intrauterine pregnancy (principal)
CPT/HCPCS: 36415; 84702

== ENCOUNTER 2022-12-22 03:11 | Outpatient (CLI) | payer BC, SELFPAY ==
[2022-12-22 14:05] LABS: HCG Quant, Pregnancy 1 mIU/mL (1-3)
== END 2022-12-22 03:12 | disposition home or self-care (01) ==
LOC: LBO 03:11
PROVIDERS: PCP Nurse Practitioner Family; Visit Provider Obstetrics & Gynecology
DX: O00.90 Unspecified ectopic pregnancy without intrauterine pregnancy (principal)
CPT/HCPCS: 36415; 84702

== ENCOUNTER 2024-01-03 21:36 | Outpatient (REF) | payer BC, SELFPAY | END 2024-01-03 21:37 | disposition home or self-care (01) | LOC: LBN 21:36 | PROVIDERS: PCP Nurse Practitioner Family; Visit Provider Nurse Practitioner Family | DX: N89.8 Other specified noninflammatory disorders of vagina (principal) | CPT/HCPCS: 87480; 87510; 87660 ==

== ENCOUNTER 2024-09-29 00:33 | Outpatient (CLI) | payer BC, SELFPAY ==
[2024-09-29 12:10] LABS: HCT 38.3 % (36.0-46.0); HGB 12.6 g/dL (11.2-15.7); MCH 31.5 pg (27.0-33.0); MCHC 32.9 % (32.0-36.0); MCV 96 fL (80-95); MPV 10.8 fL (8.0-11.0); Platelet Count 269 10^3/uL (130-400); RDW 13.3 % (11.7-14.6); RDW-SD 47.4 fL; WBC 3.95 10^3/uL (4.4-10.8)
[2024-09-29 12:41] LABS: ALT 19 U/L (14-59); AST 16 U/L (15-37); Albumin 3.7 g/dL (3.4-5.0); Alkaline Phosphatase 70 U/L (46-116); Anion Gap 8.7 mmol/L (3-11); BUN 11 mg/dL (7-18); Bilirubin, Total 0.2 mg/dL (0.2-1.0); CO2 27.3 mmol/L (21.0-32.0); CREATININE 0.6 mg/dL (0.55-1.02); Calcium 8.8 mg/dL (8.5-10.1); Calculated LDL 104 mg/dL (<100); Chloride 105 mmol/L (98-107); Cholesterol 204 mg/dL (<200); Glucose 83 mg/dL (74-106); HDL Cholesterol 87 mg/dL (>or=50); Potassium 4.7 mmol/L (3.5-5.1); Sodium 141 mmol/L (136-145); TSH (W/Ref FT4) 1.68 uIU/mL (0.36-3.74); Triglyceride 67 mg/dL (<150)
== END 2024-09-29 00:34 | disposition home or self-care (01) ==
LOC: LOS 00:33
PROVIDERS: PCP Nurse Practitioner Family; Visit Provider Nurse Practitioner Family
DX: I10 Essential (primary) hypertension (principal); F32.81 Premenstrual dysphoric disorder; Z00.00 Encounter for general adult medical examination without abnormal findings
CPT/HCPCS: 36415; 80053; 80061; 85027; 84443

== ENCOUNTER 2025-01-04 12:53 | Outpatient (REF) | payer BC, SELFPAY ==
--- NOTE | 2025-01-04 10:15 | PAPFT_PTH ---
PATIENT: Sissy Patel LOC: [facility] #:[id number] AGE/SX: 39/F ROOM: RE01/04/[address]: Radha Correa NP : 1985 BED: DIS: 01/04/2025 SPEC #: [id number] RECD: 01/04/25 13:03 STATUS: KAYLIE REFlaco #: [id number] KODI: 01/04/25 10:[address]: Radha Correa DEPT: [facility] Cytology RECD BY: Sanaz Frederick Tissues: 1 - CX/ENDOCX FOR PAP SMEARS Procedures: PAP THIN PREP/UVM Screening HPV DNA PROBE Comments: [id number] (HPV 16 & 18/45) (CHLAMYDIA/GC)
== END 2025-01-04 12:54 | disposition home or self-care (01) ==
LOC: LBN 12:53
PROVIDERS: PCP Nurse Practitioner Family; Visit Provider Nurse Practitioner Family
DX: Z12.4 Encounter for screening for malignant neoplasm of cervix (principal)
CPT/HCPCS: 88142; 87624

== ENCOUNTER 2025-01-17 02:00 | Outpatient (CLI) | payer BC, SELFPAY ==
--- NOTE | 2025-01-17 08:30 | DI.MAMMO_ITS ---
Exam(s) MAMMO SCREENING EXAM: MAMMO SCREENING CLINICAL HISTORY: screening,z12.39. TECHNIQUE: Bilateral full field digital CC and MLO mammographic images were obtained with 3D tomosynthesis and utilizing computer aided detection (CAD). COMPARISON: None. This is a baseline mammogram on this 39-year-old patient FINDINGS: There are no significant right breast findings. In the left breast there is an asymmetric density-possible nodule located 9 cm in from the nipple on the MLO view and 10 cc M in from the nipple on the CC view, this density measuring approximately 7 x 5 mm.. Spot compression and ultrasound recommended. There are no malignant-appearing microcalcification groups in either breast. There is no significant architectural distortion nor skin thickening-retraction. IMPRESSION: 1. No radiographic evidence of malignancy in the right breast. 2. Asymmetric density-possible significant nodule in the left breast as described above. Spot compression CC and MLO views are recommended as well as complete left breast ultrasound. BI-RADS Category 0 - Incomplete: Need additional imaging evaluation Breast Density - Category B - There are scattered areas of fibroglandular density. Breast density Category C or D implies that the patient has dense breast tissue. Dense breast tissue can make it harder to find cancer on a mammogram. Dense breast tissue is also associated with an increased risk of breast cancer. This information about the result of the mammogram report was provided to the patient to raise their awareness. Use this report when you speak with the patient about their risks for breast cancer, which includes their family history. At that time, you may recommend additional screening tests (Ultrasound or MRI) as these tests may add significant information. A negative radiographic report should not delay biopsy if a dominant or clinically suspicious mass is present. Up to ten percent of cancers are not identified on mammography. A negative report may reinforce clinical impression. Adenosis and dense breasts may obscure an underlying neoplasm. False positive reports average 6 to 10%. Patient will receive a letter notifying them of these results.
== END 2025-01-17 02:20 ==
PROVIDERS: PCP Nurse Practitioner Family; Visit Provider Nurse Practitioner Family
DX: Z12.31 Encounter for screening mammogram for malignant neoplasm of breast (principal); R92.323 Mammographic fibroglandular density, bilateral breasts
CPT/HCPCS: 77063; 77067

== ENCOUNTER 2025-01-23 01:36 | Outpatient (CLI) | payer BC, SELFPAY ==
--- NOTE | 2025-01-23 | DI.US_ITS ---
Exam(s) MG MAMMO SCREEN CALL BACK UNI US BREAST LT COMPLETE EXAM: MG MAMMO SCREEN CALL BACK UNI-LEFT COMPLETE LEFT BREAST ULTRASOUND CLINICAL HISTORY: F/U MAMMO, LT ASYMMETRIC DENSITY,? NODULE,R92.8. TECHNIQUE: Unilateral LEFT BREAST spot mammographic images obtained with 3D tomosynthesisand utilizing computer aided detection (CAD). . Complete LEFT breast Ultrasound was also performed, including all 4 quadrants, the retroareolar region, and the ipsilateral axilla. COMPARISON: Prior mammograms were reviewed. This additional imaging was performed due to findings described on the recent BASELINE screening mammogram of 01/17/2025. FINDINGS: DIAGNOSTIC MAMMOGRAM: Additional mammographic views performed todaydoes not completely dissipate this nodule. We proceeded to ultrasound COMPLETE LEFT BREAST ULTRASOUND: Ultrasound performed today reveals a solitary finding which is at the 4 o'clock position and appears to correspond to the finding on the mammogram. This has the appearance of a conglomeration microcysts measuring 6 x 4 mm. There are no other focal ultrasound findings in all 4 quadrants. Scanning of the ipsilateral axilla reveals no significant adenopathy. IMPRESSION: 1. Benign-appearing left breast finding on ultrasound corresponding to the finding on the mammogram. Appropriate follow-up as discussed by myself with the patient today is repeat left breast mammogram and ultrasound in 6 months, with earlier imaging if a self detected breast change is noted. The patient was informed of these findings and recommendations myself prior to leaving the department today. BI-RADS Category 3 - 6 month - Probably Benign Finding: Recommend follow-up mammography in 6 months Breast Density - Category B - There are scattered areas of fibroglandular density. Breast density Category C or D implies that the patient has dense breast tissue. Dense breast tissue can make it harder to find cancer on a mammogram. Dense breast tissue is also associated with an increased risk of breast cancer. This information about the result of the mammogram report was provided to the patient to raise their awareness. Use this report when you speak with the patient about their risks for breast cancer, which includes their family history. At that time, you may recommend additional screening tests (Ultrasound or MRI) as these tests may add significant information. A negative radiographic report should not delay biopsy if a dominant or clinically suspicious mass is present. Up to ten percent of cancers are not identified on mammography. A negative report may reinforce clinical impression. Adenosis and dense breasts may obscure an underlying neoplasm. False positive reports average 6 to 10%. Patient will receive a letter notifying them of these results.
== END 2025-01-23 01:56 ==
LOC: DI 01:36
PROVIDERS: PCP Nurse Practitioner Family; Visit Provider Nurse Practitioner Family
DX: Z12.31 Encounter for screening mammogram for malignant neoplasm of breast (principal); R92.8 Other abnormal and inconclusive findings on diagnostic imaging of breast; R92.323 Mammographic fibroglandular density, bilateral breasts
CPT/HCPCS: 76642; 77063; 77067